=== PATIENT | female | born 1980 | race African-American/Black ===

== ENCOUNTER 2016-08-31 18:23 | Emergency (ER) | payer SELFPAY ==
[2016-08-31 18:52] VITALS: RESP 20; TEMP 99.9
[2016-08-31 19:01] VITALS: O2SAT 100
[2016-08-31] MEDS ORDERED: CLONIDINE 0.1 MG TAB PO ONE (19:05)
[2016-08-31] MEDS ORDERED: CLONIDINE 0.1 MG TAB ONE (19:48)
[2016-08-31 21:07] VITALS: PULSE 88
[2016-08-31 21:34] LABS: HEMATOCRIT 35 % (35-47); MEAN CORPUSCULAR HGB CONC 32.3 gm/dl (32.0-36.0); MEAN CORPUSCULAR VOLUME 82 fL (81-99)
[2016-08-31 21:43] LABS: ALBUMIN 3.5 gm/dl (3.4-5.0); CALCIUM 8.4 mg/dl (8.5-10.1); POTASSIUM 3.7 mMol/L (3.5-5.1)
[2016-08-31 21:49] LABS: BASOPHILS % (MANUAL) 0 % (0-3); EOSINOPHILS % (MANUAL) 0 % (0-9); LYMPHOCYTES % (MANUAL) 18 % (10-50); PLATELET MORPHOLOGY COMMENT ADEQUATE
[2016-08-31 21:50] LABS: OVALOCYTES PRESENT
[2016-08-31 21:54] LABS: APPEARANCE,URINE Clear; BILIRUBIN,URINE NEGATIVE (NEGATIVE); COLOR,URINE Yellow; GLUCOSE, URINE (UA) NEGATIVE (NEGATIVE); KETONES,URINE TRACE (NEGATIVE); LEUKOCYTE ESTERASE ,URINE NEGATIVE (NEGATIVE); NITRATE,URINE NEGATIVE (NEGATIVE); OCCULT BLOOD,URINE NEGATIVE (NEG-TRACE)
[2016-08-31 22:12] LABS: METHADONE NEGATIVE (NEGATIVE); OPIATES(OP13) NEGATIVE (NEGATIVE); OXYCODONE(OXY) NEGATIVE (NEGATIVE); PROPOXYPHENE(PPX) NEGATIVE (NEGATIVE); RBC,URINE NEG (0-3AV/HPF); TRICYCLIC ANTIDEPRESSANTS NEGATIVE (NEGATIVE); WBC,URINE NEG (0-5AV/HPF)
[2016-08-31 22:13] LABS: AMPHETAMINES POSITIVE (NEGATIVE)
[2016-08-31 22:16] VITALS: BP 145/93
== END 2016-08-31 22:47 | DRG 392 ==
LOC: ED 18:23
DX: R10.9 Unspecified abdominal pain (principal); I10 Essential (primary) hypertension; D64.9 Anemia, unspecified
CPT/HCPCS: 80053; 80305; 81001; 85007; 85027; 99282; 99284